=== PATIENT | female | born 1980 | race Caucasian/White ===

== ENCOUNTER 2017-07-10 18:21 | Outpatient (CLI) | payer BC, MEDICARE ==
[2015-10-30 17:15] VITALS: BP 110/73
--- NOTE | 2017-07-10 18:56 | Diagnostic Imaging Report ---
[facility] [address] [facility].[address] [address] Report Submission Date: Jul 10, 2017 6:52:44 PM CDT Patient Study Name: October Date: Jul 10, 2017 6:33:40 PM CDT MRN: [id number] Modality Type: CR Gender: F Description: SHOULDER : 76 Institution: [facility] Physician: ZAHEER YANG - ARMANDO Examination: Plain film shoulder History: Discomfort Comparison exams: None provided Findings: 3 views of the shoulder demonstrate normal cortical margins. No evidence for fracture or dislocation. No soft tissue abnormality Impression: No acute osseous process. Electronically signed on Jul 10, 2017 6:52:44 PM CDT by: Dio HUNT
== END 2017-07-10 18:22 ==
LOC: RAD 18:21
PROVIDERS: ATTEND Family Medicine
DX: M25.511 Pain in right shoulder (principal)
CPT/HCPCS: 73030